=== PATIENT | male | born 1980 | race African-American/Black ===

== ENCOUNTER 2025-04-04 18:09 | Emergency (ER) | payer SELFPAY ==
[~2025-04-04] VITALS: Ht 188 cm; Wt 100.0 kg
[2025-04-04 18:15] VITALS: O2SAT 100
[2025-04-04 20:10] LABS: BASOPHILS % 0.6 % (0.0-2.0); EOSINOPHILS % 1.9 % (0.0-5.0); HEMATOCRIT. 35.0 % (42.0-52.0); HEMOGLOBIN. 11.8 g/dL (14.0-18.0); LYMPHOCYTES % 49.9 % (20.0-50.0); MEAN PLATELET VOLUME 7.0 fl (7.4-10.4); MONOCYTES % 8.2 % (2.0-8.0); NEUTROPHILS % 39.4 % (40.0-76.0); PLATELET 187 x1000/uL (130-400); RED BLOOD CELL COUNT 3.74 mill/uL (4.7-6.1); RED CELL DISTRIBUTION WIDTH 12.5 % (11.6-14.6)
[2025-04-04 20:25] LABS: CREATININE 1.1 mg/dL (0.6-1.3); UREA NITROGEN BLOOD 15 mg/dL (9-23)
[2025-04-04 20:27] LABS: ASPARTATE AMINOTRANSFERASE 59 IU/L (<34); PROTEIN TOTAL 7.1 g/dL (6.0-8.3)
[2025-04-04 20:28] LABS: BILIRUBIN DIRECT 0.2 mg/dL (<=3.0); BILIRUBIN TOTAL 0.6 mg/dL (0.1-1.0); ETHANOL BLOOD < 10 mg/dL (<10)
[2025-04-04 22:12] LABS: *AMPHETAMINES SCREEN URINE NEGATIVE (NEGATIVE); *BARBITURATES SCREEN URINE NEGATIVE (NEGATIVE); *BENZODIAZEPINES SCREEN URINE NEGATIVE (NEGATIVE); *COCAINE SCREEN URINE NEGATIVE (NEGATIVE); CANNABINOID URINE SCREEN NEGATIVE (NEGATIVE); ECSTASY MDMA SCREEN URINE NEGATIVE (NEGATIVE); METHADONE URINE SCREEN NEGATIVE (NEGATIVE); OPIATES URINE SCREEN NEGATIVE (NEGATIVE); PHENCYCLIDINE URINE SCREEN NEGATIVE (NEGATIVE)
[2025-04-04 22:19] LABS: CLARITY URINE CLEAR (CLEAR); COLOR URINE YELLOW (YELLOW); GLUCOSE URINE NEGATIVE (NEGATIVE); KETONES URINE NEGATIVE (NEGATIVE); LEUKOCYTE ESTERASE URINE NEGATIVE (NEGATIVE); NITRITE URINE NEGATIVE (NEGATIVE); OCCULT BLOOD URINE NEGATIVE (NEGATIVE); PH URINE 6.0 (4.5-8.0); PROTEIN URINE NEGATIVE (NEGATIVE); SPECIFIC GRAVITY URINE 1.024 (1.005-1.030); UROBILINOGEN URINE 1.0 E.U./dL (0.2-1.0)
[2025-04-04] MEDS ORDERED: DIVALPROEX SODIUM 500MG DR TABLET PO ONE (23:30)
[2025-04-05] MEDS ORDERED: DIVALPROEX SODIUM 500MG ER TABLET PO ONE (00:45)
[2025-04-05] MEDS: DIVALPROEX SODIUM 250MG ER TABLET PO NR (00:53)
[2025-04-05] MEDS: RISPERIDONE 1MG TABLET PO SCH (00:53)
[2025-04-05] MEDS: DIVALPROEX SODIUM 500MG ER TABLET PO SCH (09:16)
[2025-04-05 14:34] VITALS: BP 126/86; PULSE 101; RESP 18; TEMP 36.8; O2SAT 99
== END 2025-04-05 14:49 ==
LOC: ER 18:09
DX: R45.851 Suicidal ideations (principal); F41.9 Anxiety disorder, unspecified; F31.9 Bipolar disorder, unspecified; F20.9 Schizophrenia, unspecified; Z20.822 Contact with and (suspected) exposure to COVID-19; Z79.899 Other long term (current) drug therapy
CPT/HCPCS: 80076; 80305; 80048; 81003; 80307; 80329; 80320; 83735; 85025; 36415; 99285; 87426; Z7610; G0480